=== PATIENT | female | born 1955 | race Asian ===

== ENCOUNTER 2024-03-19 10:59 | Emergency (ER) | payer SELFPAY ==
[~2024-03-19] VITALS: Ht 144.8 cm; Wt 55.6 kg
[~2024-03-19 10:59] MED LIST: COREG 3.123.125 MG/T PO; SINEMET 25/101 UDTAB PO; TESSALON PERLE200 MG PO; THYRONORM; [UNRECOGNIZED DRUG - OTHER]; [UNRECOGNIZED DRUG - OTHER]; [UNRECOGNIZED DRUG - REMARK]
[2024-03-19 11:09] VITALS: TEMP 97.7
[2024-03-19 13:02] VITALS: BP 150/78
[2024-03-19 14:13] VITALS: PULSE 67
[2024-03-19] MEDS ORDERED: ZITHROMAX Z PA250 MG PO (14:13)
[2024-03-19] MEDS ORDERED: PREDNISONE50 MG PO (14:13)
== END 2024-03-19 14:45 | disposition home or self-care (01) ==
LOC: COL.ER 10:59
DX: J40 Bronchitis, not specified as acute or chronic (principal)